=== PATIENT | female | born 1995 | race Asian ===

== ENCOUNTER 2022-03-02 20:35 | Emergency (ER) | payer OTHER ==
[~2022-03-02] VITALS: Ht 160 cm; Wt 47.6 kg
--- NOTE | 2022-03-02 20:50 | NUR ---
Pt from home with c/o left lower abd pain x1 day with nausea. Denies vomiting, LBM was 2 days ago. Pt reports having current UTI, and taking antibiotics. However, she took them at 1700 and states that they made her abd pain worse. Pt temp 100 temporal, tachycardic at 101. made aware.
[2022-03-02 20:51] VITALS: BP_SYST 101
[2022-03-02 21:35] LABS: BILIRUBIN,URINE NEGATIVE (NEGATIVE); BLOOD, URINE 3+ (NEGATIVE); CLARITY/URINE SL CLOUDY (CLEAR); COLOR,URINE YELLOW (YELLOW); GLUCOSE,URINE NEGATIVE (NEGATIVE); KETONES,URINE 1+ (NEGATIVE); LEUKOCYTE ESTERASE ,URINE 3+ (NEGATIVE); NITRITE, URINE NEGATIVE (NEGATIVE); PROTEIN URINE 1+ (NEGATIVE); UROBILINOGEN,URINE 0.2 (0.2-1.0)
[2022-03-02 21:35] LABS: BASOPHILS % (AUTO) 0.2 % (0.0-2.0); EOSINOPHILS # (AUTO) 0.1 K/uL (0.0-0.4); EOSINOPHILS % (AUTO) 0.5 % (0.0-4.0); HEMATOCRIT 36.3 % (36-48); HEMOGLOBIN 12.8 g/dL (12.0-16.0); LYMPHOCYTES # (AUTO) 0.9 K/uL (1.0-5.5); LYMPHOCYTES % (AUTO) 6.4 % (20.5-51.5); MEAN CORPUSCULAR HEMOGLOBIN 32 pg (27-31); MEAN CORPUSCULAR HGB CONC 35 % (32-36); MEAN CORPUSCULAR VOLUME 90 fL (79.0-98.0); MONOCYTES # (AUTO) 0.6 K/uL (0.0-1.0); MONOCYTES % (AUTO) 4.7 % (1.7-9.3); NEUTROPHILS # (AUTO) 12.1 K/uL (1.8-7.7); NEUTROPHILS % (AUTO) 88.2 % (40.0-70.0); PLATELET COUNT (AUTO) 312 K/uL (130-430); RED BLOOD CELL COUNT(AUTO) 4.02 MIL/uL (4.2-6.2); RED CELL DISTRIBUTION WIDTH 12.8 % (9.0-15.0); WHITE BLOOD COUNT (AUTO) 13.7 K/uL (4.8-10.8)
--- NOTE | 2022-03-02 21:46 | NUR ---
Patient to ER bed 07 to gown for evaluation. Side rails up. Report given to Lisbeth ZENG.
[2022-03-02 21:52] LABS: POTASSIUM 3.6 mmol/L (3.5-5.1); TOTAL BILIRUBIN 0.7 mg/dL (0.0-1.0)
[2022-03-02 22:17] LABS: CREATININE 0.97 mg/dL (0.55-1.30)
[2022-03-02 22:18] LABS: BACTERIA,URINE FEW /HPF (None Seen); MUCUS,URINE 1+ /LPF (None Seen); WBC,URINE >100 /HPF (0-3)
--- NOTE | 2022-03-02 22:28 | NUR ---
ER Dr. Wynne at bedside examining patient.
[2022-03-02] MEDS ORDERED: KETOROLAC TROMETHAMINE 30 MG VIAL IVP ONE ×2 (22:45→23:45)
[2022-03-02] MEDS ORDERED: cefTRIAXone 1 GM IVPB PREMIX 50 ML IV ONE (22:45)
[2022-03-02] MEDS ORDERED: NACL 0.9% 1,000 ML IV ONE (22:45)
--- NOTE | 2022-03-02 22:53 | NUR ---
# 20 gauge angiocath placed to L AC. Use of asceptic technique. Opsite placed over site. Blood return noted. Flushed with 10 cc of normal saline. No evidence of infiltration noted. Patient tolerated well.
[2022-03-02] MEDS ORDERED: CEPH250C PO (23:38)
[2022-03-02] MEDS ORDERED: NITR-85 PO (23:38)
[2022-03-02] MEDS ORDERED: FLUC200T PO (23:38)
[2022-03-03 01:16] VITALS: BP_SYST 117
--- NOTE | 2022-03-03 01:17 | NUR ---
Patient given written and verbal discharge instructions and verbalizes understanding. ER MD Wynne discussed with patient the results and treatment provided. Patient in stable condition. ID arm band removed. IV catheter removed intact and dressing applied, no active bleeding. Rx sent to pharmacy of choice. Patient educated on pain management and to follow up with PMD. Pain Scale 0/10. Opportunity for questions provided and answered. Medication side effect fact sheet provided.
== END 2022-03-03 01:16 | disposition home or self-care (01) ==
LOC: SED 20:35
DX: N10 Acute pyelonephritis (principal); R30.0 Dysuria; R11.0 Nausea; Z79.899 Other long term (current) drug therapy
CPT/HCPCS: 99284; 96365; 96375; 80053; 81000; 85025; 87040; 87086; 36415; 81025; 83605; J0696; J1885